=== PATIENT | female | born 1940 | race Caucasian/White ===

== ENCOUNTER 2017-04-03 09:01 | Outpatient (CLI) | payer MEDICARE, OTHER ==
[2017-04-03 19:31] LABS: ALBUMIN/GLOBULIN RATIO 1.3 (1.0-2.2); BILIRUBIN,TOTAL 0.6 mg/dL (0.2-1.0); BUN - BLOOD UREA NITROGEN 24 mg/dL (6-20); CALCIUM 9.4 mg/dL (8.5-10.3); CARBON DIOXIDE - CO2 28 mmol/L (21-32); CHLORIDE 104 mmol/L (101-111); CHOL/HDL RATIO 3.8 (<4.4); CHOLESTEROL 225 mg/dL; CREATININE 0.8 mg/dL (0.4-1.0); GFR - MDRD 70 (>89); GLUCOSE 90 mg/dL (70-100); HDL CHOLESTEROL 59 mg/dL; LDL/HDL RATIO 2.6 (<4.4); POTASSIUM 3.8 mmol/L (3.5-5.0); SODIUM 140 mmol/L (135-145); TOTAL PROTEIN 7.3 g/dL (6.7-8.2); TRIGLYCERIDES 72 mg/dL; VLDL CHOLESTEROL 14 mg/dL
[2017-04-03 19:44] LABS: FOLATE 20.38 ng/mL (5.90 - >24.8)
[2017-04-03 19:49] LABS: HEMOGLOBIN A1C 0.57 g/dL
== END 2017-04-03 09:02 | disposition home or self-care (01) ==
LOC: LAB.F 09:01
PROVIDERS: ATTEND Internal Medicine
DX: E78.5 Hyperlipidemia, unspecified (principal); R73.01 Impaired fasting glucose
CPT/HCPCS: 36415; 80053; 80061; 82607; 82746; 83036

== ENCOUNTER 2018-09-11 08:26 | Outpatient (CLI) | payer MEDICARE, OTHER | END 2018-09-11 08:27 | disposition home or self-care (01) | LOC: LAB 08:26 | PROVIDERS: ATTEND Psychiatry & Neurology Neurology | DX: R20.0 Anesthesia of skin (principal); R20.2 Paresthesia of skin | CPT/HCPCS: 36415; 82951 ==

== ENCOUNTER 2020-04-09 13:48 | Outpatient (CLI) | payer MEDICARE, OTHER ==
[2020-04-09 20:15] LABS: BASOPHILS # (AUTO) 0.1 10^3/uL (0.0-0.1); BASOPHILS % (AUTO) 0.7 %; EOSINOPHILS # (AUTO) 0.1 10^3/uL (0.0-0.7); EOSINOPHILS % (AUTO) 1.1 %; HGB - HEMOGLOBIN 13.5 g/dL (12.0-16.0); LYMPHOCYTES # (AUTO) 1.7 10^3/uL (1.5-3.5); LYMPHOCYTES % (AUTO) 20.5 %; MEAN CORPUSCULAR HEMOGLOBIN 29.5 pg (27.0-31.0); MEAN CORPUSCULAR HGB CONC 32.1 g/dL (32.0-36.0); MEAN CORPUSCULAR VOLUME 91.7 fL (81.0-99.0); MEAN PLATELET VOLUME 9.8 fL (7.9-10.8); MONOCYTES # (AUTO) 0.4 10^3/uL (0.0-1.0); MONOCYTES % (AUTO) 5.1 %; NEUTROPHILS # (AUTO) 6.1 10^3/uL (1.5-6.6); NEUTROPHILS % (AUTO) 72.2 %; PLT - PLATELET COUNT 326 10^3/uL (130-450); RED BLOOD COUNT 4.58 10^6/uL (4.20-5.40); RED CELL DISTRIBUTION WIDTH 13.7 % (12.0-15.0); WHITE BLOOD COUNT 8.5 x10^3/uL (4.8-10.8)
[2020-04-09 20:21] LABS: ALBUMIN 4.6 g/dL (3.2-5.5); ALBUMIN/GLOBULIN RATIO 1.5 (1.0-2.2); BILIRUBIN,TOTAL 0.6 mg/dL (0.2-1.0); CALCIUM 9.6 mg/dL (8.5-10.3); TOTAL PROTEIN 7.7 g/dL (6.7-8.2)
== END 2020-04-09 13:49 | disposition home or self-care (01) ==
LOC: LAB.S 13:48
PROVIDERS: ATTEND Internal Medicine
DX: M81.0 Age-related osteoporosis without current pathological fracture (principal); R42 Dizziness and giddiness; R53.81 Other malaise; R53.83 Other fatigue
CPT/HCPCS: 36415; 80053; 82306; 82607; 84443; 85025

== ENCOUNTER 2020-10-13 23:42 | Outpatient (CLI) | payer MEDICARE, OTHER | END 2020-10-13 23:43 | disposition home or self-care (01) | LOC: COV 23:42 | PROVIDERS: ATTEND Anesthesiology Pain Medicine | DX: Z20.822 Contact with and (suspected) exposure to COVID-19 (principal) ==

== ENCOUNTER 2020-11-29 08:53 | Outpatient (CLI) | payer MEDICARE, OTHER ==
[2020-11-29 14:34] LABS: ALBUMIN 4.2 g/dL (3.2-5.5); ALBUMIN/GLOBULIN RATIO 1.4 (1.0-2.2); ALKALINE PHOSPHATASE 76 IU/L (42-121); ALT ALANINE AMINOTRANSFERASE 20 IU/L (10-60); AST ASPARTATE AMINOTRANSFERASE 15 IU/L (10-42); BILIRUBIN,TOTAL 0.6 mg/dL (0.2-1.0); BUN - BLOOD UREA NITROGEN 34 mg/dL (6-20); CALCIUM 9.6 mg/dL (8.5-10.3); CARBON DIOXIDE - CO2 26 mmol/L (21-32); CHLORIDE 106 mmol/L (101-111); CHOL/HDL RATIO 3.4 (<4.4); CHOLESTEROL 248 mg/dL; CREATININE 1.1 mg/dL (0.4-1.0); GFR - MDRD 48 (>89); GLUCOSE 108 mg/dL (70-100); HDL CHOLESTEROL 74 mg/dL; LDL CHOLESTEROL,CALCULATED 156 mg/dL; LDL/HDL RATIO 2.1 (<4.4); POTASSIUM 4.1 mmol/L (3.5-5.0); SODIUM 139 mmol/L (135-145); TOTAL PROTEIN 7.1 g/dL (6.7-8.2); TRIGLYCERIDES 89 mg/dL; VLDL CHOLESTEROL 18 mg/dL
[2020-11-29 20:40] LABS: ESTIMATED AVERAGE GLUCOSE 126 mg/dL (70-100)
[2020-11-30 12:11] LABS: HEPATITIS C ANTIBODY NON-REACTIVE (NON-REACTIVE)
== END 2020-11-29 08:54 | disposition home or self-care (01) ==
LOC: LAB.S 08:53
PROVIDERS: ATTEND Internal Medicine
DX: I10 Essential (primary) hypertension (principal); Z11.59 Encounter for screening for other viral diseases; R73.01 Impaired fasting glucose
CPT/HCPCS: 36415; 80053; 80061; 83036; 83721; 86803

== ENCOUNTER 2021-01-17 16:43 | Outpatient (CLI) | payer MEDICARE, OTHER | END 2021-01-17 16:44 | disposition home or self-care (01) | LOC: COV 16:43 | PROVIDERS: ATTEND Internal Medicine Gastroenterology | DX: Z01.812 Encounter for preprocedural laboratory examination (principal); Z20.822 Contact with and (suspected) exposure to COVID-19 ==

== ENCOUNTER 2022-01-25 08:19 | Outpatient (CLI) | payer MEDICARE, OTHER ==
[2022-01-25 15:05] LABS: ALT ALANINE AMINOTRANSFERASE 19 IU/L (10-60); CK- CREATINE KINASE 61 IU/L (22-269)
[2022-01-25 15:43] LABS: FOLATE 7.39 ng/mL (5.90 - >24.8)
[2022-01-25 20:19] LABS: ESTIMATED AVERAGE GLUCOSE 123 mg/dL (70-100); HEMOGLOBIN A1c% 5.9 % (4.27-6.07)
== END 2022-01-25 08:20 | disposition home or self-care (01) ==
LOC: LAB.S 08:19
PROVIDERS: ATTEND Internal Medicine
DX: G62.9 Polyneuropathy, unspecified (principal); M81.0 Age-related osteoporosis without current pathological fracture; R73.01 Impaired fasting glucose; E78.5 Hyperlipidemia, unspecified
CPT/HCPCS: 36415; 82306; 82550; 82607; 82746; 83036; 84460

== ENCOUNTER 2022-03-03 08:14 | Outpatient (CLI) | payer MEDICARE, OTHER ==
[2022-03-03 16:34] LABS: ALT ALANINE AMINOTRANSFERASE 18 IU/L (10-60); CHOL/HDL RATIO 2.6 (<4.4); CHOLESTEROL 169 mg/dL; CK- CREATINE KINASE 51 IU/L (22-269); HDL CHOLESTEROL 65 mg/dL; LDL CHOLESTEROL,CALCULATED 89 mg/dL; LDL/HDL RATIO 1.4 (<4.4); TRIGLYCERIDES 76 mg/dL; VLDL CHOLESTEROL 15 mg/dL
== END 2022-03-03 08:15 | disposition home or self-care (01) ==
LOC: LAB.S 08:14
PROVIDERS: ATTEND Internal Medicine
DX: E78.00 Pure hypercholesterolemia, unspecified (principal)
CPT/HCPCS: 36415; 80061; 82550; 83721; 84460

== ENCOUNTER 2024-04-29 12:48 | Outpatient (CLI) | payer MEDICARE, OTHER ==
--- NOTE | 2024-04-29 19:15 | XRAY Report ---
PROCEDURE: Foot 3+V LT (Weight Bearing) INDICATIONS: L FOOT PAIN TECHNIQUE: 3 views of the foot were acquired. COMPARISON: None. FINDINGS: Bones: No fractures or dislocations. Osteoarthritic changes are noted throughout left foot joints. There is anatomic left alignment with weightbearing. Mild osteopenia is seen. No suspicious bony lesi ons. Soft tissues: No tibiotalar joint effusion. Achilles tendon appears normal. IMPRESSION: No acute left foot fracture or dislocation. Anatomic left alignment with weightbearing. 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 Diffuse osteopenia. Reviewed by: Mikey Rodríguez MD on 04/29/2024 7:14 PM PDT Approved by: Mikey Rodríguez MD on 04/29/2024 7:14 PM PDT Station ID: [id number]
== END 2024-04-29 12:49 | disposition home or self-care (01) ==
LOC: DI 12:48
PROVIDERS: ATTEND Podiatrist
DX: M19.072 Primary osteoarthritis, left ankle and foot (principal); M85.872 Other specified disorders of bone density and structure, left ankle and foot

== ENCOUNTER 2024-06-18 10:01 | Outpatient (CLI) | payer MEDICARE, OTHER ==
[2024-06-18 14:47] LABS: BASOPHILS % (AUTO) 0.6 %; EOSINOPHILS # (AUTO) 0.1 10^3/uL (0.0-0.7); HCT - HEMATOCRIT 39.1 % (37.0-47.0); HGB - HEMOGLOBIN 12.4 g/dL (12.0-16.0); LYMPHOCYTES # (AUTO) 1.8 10^3/uL (1.5-3.5); LYMPHOCYTES % (AUTO) 27.9 %; MEAN CORPUSCULAR HEMOGLOBIN 28.8 pg (27.0-31.0); MEAN CORPUSCULAR HGB CONC 31.7 g/dL (32.0-36.0); MEAN CORPUSCULAR VOLUME 90.9 fL (81.0-99.0); MEAN PLATELET VOLUME 10.4 fL (7.9-10.8); MONOCYTES # (AUTO) 0.3 10^3/uL (0.0-1.0); MONOCYTES % (AUTO) 4.8 %; NEUTROPHILS # (AUTO) 4.2 10^3/uL (1.5-6.6); NEUTROPHILS % (AUTO) 64.5 %; PLT - PLATELET COUNT 277 10^3/uL (130-450); RED CELL DISTRIBUTION WIDTH 13.2 % (12.0-15.0); WHITE BLOOD COUNT 6.5 x10^3/uL (4.8-10.8)
[2024-06-18 15:35] LABS: ALBUMIN 4.1 g/dL (3.2-5.5); ALBUMIN/GLOBULIN RATIO 1.6 (1.0-2.2); ALKALINE PHOSPHATASE 88 IU/L (42-121); ALT ALANINE AMINOTRANSFERASE 10 IU/L (10-60); AST ASPARTATE AMINOTRANSFERASE 13 IU/L (10-42); BILIRUBIN,TOTAL 0.6 mg/dL (0.2-1.0); BUN - BLOOD UREA NITROGEN 29 mg/dL (6-20); CALCIUM 9.4 mg/dL (8.5-10.3); CARBON DIOXIDE - CO2 28 mmol/L (21-32); CHLORIDE 107 mmol/L (101-111); CHOL/HDL RATIO 4.3 (<4.4); CHOLESTEROL 260 mg/dL; CREATININE 0.9 mg/dL (0.6-1.3); GFR - MDRD 60 (>89); GLUCOSE 97 mg/dL (74-104); HDL CHOLESTEROL 60 mg/dL; LDL CHOLESTEROL,CALCULATED 182 mg/dL; SODIUM 140 mmol/L (135-145); TOTAL PROTEIN 6.7 g/dL (6.4-8.9); TRIGLYCERIDES 91 mg/dL; VLDL CHOLESTEROL 18 mg/dL
[2024-06-18 20:41] LABS: ESTIMATED AVERAGE GLUCOSE 117 mg/dL (70-100); HEMOGLOBIN A1c% 5.7 % (4.27-6.07)
== END 2024-06-18 10:02 | disposition home or self-care (01) ==
LOC: LAB.S 10:01
PROVIDERS: ATTEND Internal Medicine
DX: I10 Essential (primary) hypertension (principal); M81.0 Age-related osteoporosis without current pathological fracture; R73.03 Prediabetes
CPT/HCPCS: 36415; 80053; 80061; 82306; 83036; 83721; 83970; 85025